=== PATIENT | male | born 1970 | race Caucasian/White ===

== ENCOUNTER 2018-11-04 16:46 | Inpatient (IN) ==
[2018-11-04] MEDS: OFIRMEV 1000 MG/ISOTONIC SOLN 1,000 MG/100 ML BOTTLE IV SCH (16:43)
[~2018-11-04 16:46] MED LIST: NS 1,000 ML IV ONE; NS 1,000 ML ONE
[2018-11-04 17:14] LABS: BASO# 0.01 X1000 (0.0-0.2); BASO% 0.1 % (0.0-0.8); EOS# 0.03 X1000 (0.0-0.7); EOS% 0.4 % (0.0-10.0); HEMATOCRIT 44.9 % (42.0-52.0); HEMOGLOBIN 15.2 g/dL (14.0-18.0); IMM GRAN# 0.03 X1000 (0.0-0.04); IMM GRAN% 0.4 % (0.0-0.5); LYMPH# 0.52 X1000 (1.2-3.4); LYMPH% 6.2 % (20.5-51.1); MCH 30.3 PG (27-31); MCHC 33.9 g/dL (33-37); MCV 89.4 FL (81-99); MONO# 0.46 X1000 (0.11-0.59); MONO% 5.5 % (1.7-9.3); NEUT# 7.39 X1000 (1.4-6.5); NEUT% 87.4 % (42.2-75.2); PLT 185 X1000 (130-400); RBC 5.02 XMIL (4.7-6.1); RDW 13.4 % (11.5-14.5); WBC 8.44 X1000 (4.8-10.8)
[2018-11-04 17:18] LABS: INFLUENZA A NEGATIVE (NEGATIVE); INFLUENZA B NEGATIVE (NEGATIVE)
[2018-11-04 17:19] LABS: ESTIMATED GFR > 60
[2018-11-04 17:31] LABS: AGAP 19; ALBUMIN 4.7 g/dL (3.5-5.0); ALKALINE PHOSPHATASE 132 U/L (32-122); BUN 12 mg/dL (8-22); CALCIUM 9.5 mg/dL (8.8-10.2); CHLORIDE 87 mmol/L (98-107); COSMO 266; GLUCOSE 199 mg/dL (70-104); GOT 42 U/L (10-34); GPT 48 U/L (10-44); POTASSIUM 4.2 mmol/L (3.5-5.1); SODIUM 130 mmol/L (136-145); TCO2 24 mmol/L (25-35); TOTAL PROTEIN 7.7 g/dL (6.3-8.3)
[2018-11-04 17:51] LABS: BLOOD TYPE ARTERIAL; SAMPLE BLOOD
[2018-11-04 17:52] LABS: BE 2.2 mmoll (-3.0-3.0); HCO3-(ACT) 26.5 mmoll (20.0-26.0); METHB 1.5 % (0.0-1.5); O2(CT) 19.5 mL/dL (15.0-23.0); O2HB 92.5 % (95.0-99.0); PCO2(98.6) 35 mmHg (35-45); PO2(98.6) 72 mmHg (60-100); SAO2 96.9 % (95.0-100.0); pH(98.6) 7.47 (7.35-7.45)
[2018-11-04] MEDS: LEVAQUIN 500 MG/D5W 500 MG/100 ML IVPB IV SCH (17:53)
[2018-11-04 17:55] LABS: ALLEN TEST YES; MODALITY CANNULA
[2018-11-04] MEDS ORDERED: NS IV ONE ×3 (18:08)
--- NOTE | 2018-11-04 18:23 | Diag Imaging Result Doc PS360 ---
EXAM: CT HEAD W/O CONTRAST INDICATION: altered mental status TECHNIQUE: This exam was performed using automated exposure control, adjustment of mA or kV according to patient size, and/or use of iterative reconstruction technique. COMPARISON: None. FINDINGS: There is an incidental prominent Virchow Mason space at the inferior aspect of the right basal ganglion. There is no definite acute infarct given the limited sensitivity of CT versus MRI. There is no discrete intracranial mass, mass effect, or intracranial hemorrhage. The surrounding soft tissues and bony structures are essentially unremarkable. IMPRESSION: No evidence of acute intracranial pathology. Electronically signed by Ld Lpoez 11/04/2018 6:20 PM
--- NOTE | 2018-11-04 19:32 | PROVIDER DOCUMENTATION ---
This chart was entered by Ana Vazquez Scribe, acting as scribe for Nando Albert MD. 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 denies: nausea, vomiting Similar Symptoms Previously?: No Recently seen or treated by another doctor?: No - Glascow Coma Score Best Eye Response (Mike): (3) open to voice Best Verbal Response ([place]): (2) incomprehsible sounds Best Motor Response (Mike): (5) localizes to pain Mike Total: 10 <Nando Albert - Last Filed: 11/04/18 19:30> <Darrin Lindo - Last Filed: 11/04/18 22:31> - General Chief Complaint: SEPSIS ALERT - P Stated Complaint: FEVER Time Seen by Provider: 11/04/18 16:30 Allergies/Adverse Reactions: Patient Allergies Allergy/AdvReac Type Severity Reaction Status Date / Time ceftriaxone sodium * Allergy ANAPHYLAXIS Verified 12/15/14 17:53 [From Rocephin] dextromethorphan HBr * AdvReac HIVES Verified 12/15/14 17:53 [From Delsym] Sulfa (Sulfonamide AdvReac RASH Verified 12/15/14 17:53 Antibiotics) Home Medications: Home Medication List Medication Instructions Recorded Confirmed Last Taken Type Amitriptyline HCl 150 mg PO DAILY 12/12/14 12/15/14 Unknown History Benzonatate [Tessalon] 200 mg PO TID PRN PRN #21 capsule 12/12/14 12/15/14 Unknown Rx Carbamazepine 200 mg PO BID 12/12/14 12/15/14 Unknown History Ergocalciferol (Vitamin D2) 50,000 unit PO 12/12/14 12/15/14 Unknown History [Vitamin D2] Fluticasone Propionate 220 INH 200 mcg DAILY 12/12/14 12/15/14 Unknown History [Flovent 220 Microgm Hfa] Gabapentin 800 mg PO TID 12/12/14 12/15/14 Unknown History Levofloxacin [Levaquin] 750 mg PO DAILY #7 tablet 12/12/14 12/15/14 Unknown Rx Montelukast [Singulair] 10 mg PO DAILY 12/12/14 12/15/14 Unknown History Oxcarbazepine 300 mg PO BID 12/12/14 12/15/14 Unknown History Oxycodone HCl/Acetaminophen 1 each PO TID 12/12/14 12/15/14 Unknown History [Oxycodone-Acetaminophen 10-325] Sulindac 200 mg PO BID 12/12/14 12/15/14 Unknown History Tizanidine [Zanaflex] 4 mg PO BID 12/12/14 12/15/14 Unknown History Triamterene/Hydrochlorothiazid 1 tab DAILY 12/12/14 12/15/14 Unknown History [Triamterene-Hctz 37.5-25 mg Tb] Cephalexin [Keflex] 500 mg PO BID #14 capsule 12/15/14 Unknown Rx - History of Present Illness-Fever Nature of Presenting Problem: 47 yowm presents to the ed via pov with his mother. pt was going to see his pcp and they could not get him out of the car so he was sent to ed. mother sts pt yesterday told her he did not feel well and had a fever, productive cough with dark sputum and congestion. mother went over today and pt was weak and not speaking much (Nando Albert) Review of Systems - Adult - REVIEW OF SYSTEMS - ADULT ROS:: ROS per family (mother) Constitutional: reports: see HPI, chills, fever, fatique Eyes: reports: no symptoms reported Ears, Nose, Mouth & Throat: reports: no symptoms reported Cardiovascular: denies: chest pain, syncope Respiratory: reports: cough, excessive sputum production (dark in color), shortness of breath Gastrointestinal: denies: abdominal pain, diarrhea, nausea, vomiting Genitourinary: reports: no symptoms reported Musculoskeletal: reports: see HPI, muscle aches, muscle weakness Integumentary: reports: no symptoms reported Neurological: reports: see HPI. denies: dizziness/vertigo, headache/migraines, syncope Psychiatric: reports: see HPI, other (confusion) Endocrine: reports: no symptoms reported Hematologic/Lymphatic: reports: no symptoms reported Allergic/Immunologic: reports: no symptoms reported All Other Systems: Reviewed and Negative <Nando Albert - Last Filed: 11/04/18 19:30> Past History - Adult - PAST MEDICAL HISTORY-ADULT Review of Records: reports: Nursing Assessment Review, Medications Reviewed Major Childhood Illnesses: reports: denies history Cardiovascular: reports: CHF Respiratory: reports: denies history Gastrointestinal: reports: denies history Genitourinary: reports: denies history Musculoskeletal: reports: arthritis, other (polyneuropathy) Hand Dominance: Right Handed Neurological: reports: Seizures/Epilepsy Endocrine/Immune: reports: denies history Other Conditions: reports: deaf/hard of hearing - PRIOR SURGERIES/PROCEDURES Surgical/Procedure History: reports: cholecystectomy, other (Cardiac Sx) - IMMUNIZATION STATUS Childhood Immunizations: NUTD Flu Vaccine: NUTD - FAMILY HISTORY Family History: reviewed, not pertinent - SOCIAL HISTORY Smoking: cigarettes, less than 1 pack/day Provider spent 3-5 mins advising pt. on dangers of tobacco.: Discussed manners to quit use, and f/u contacts for add'l counseling. Substance Use: none/never Alcohol Use Frequency: never Living Situation: alone <Nando Albert - Last Filed: 11/04/18 19:30> Physical Exam-General - PHYSICAL EXAM-ADULT Exam Limited by: pt is nonverbal on exam Initial Vital Signs Reviewed: Yes (fever-105.1 HR-134 RR-28 BP-48/28) - CONSTITUTIONAL General Appearance: alert, moderate distress, obese, slow to respond - EYES Eyes: PERRL/EOMI - HEAD, EARS, NOSE, MOUTH & THROAT HENMT: negative: moist mucous membranes - NECK Neck: full range of motion, normal inspection - RESPIRATORY Respiratory: chest non-tender, rhonchi (on left only), increased rate (28) - CARDIOVASCULAR Cardiovascular: normal peripheral pulses, tachycardia (134) - GASTROINTESTINAL (ABDOMEN) Abdominal Exam: normal bowel sounds, soft - GENITOURINARY Male Genitalia: deferred Rectal Exam: deferred Hemoccult Exam: deferred - LYMPHATIC Lymphatic: no adenopathy - MUSCULOSKELETAL Extremity: negative: normal gait (weakness) - SKIN Integumentary: other (flushed in appearance) - PSYCHIATRIC Psych/Mental Status: anxious, disheveled <Nando Albert - Last Filed: 11/04/18 19:30> Progress - PLAN OF CARE/RESULTS Result Diagrams: 11/04/18 16:35 11/04/18 16:35 - REASSESSMENT Reassessment #1 Time Reassessed: 16:42 (dr at bedside speaking with mother of pt) Status: unchanged - CHANGE OF SHIFT REPORT (ED Provider) 1 Report Given and Care Transferred to:: Dr Lindo Time of Transfer: 19:00 Items Pending: Labs, XRAY Results <Nando Albert - Last Filed: 11/04/18 19:30> - PLAN OF CARE/RESULTS Result Diagrams: 11/04/18 16:35 11/04/18 16:35 - CONSULTS/PCP/HOSPITALIST Notification #1 *Consult/PCP/Hospitalist*: Dr. Spicer, hospitalist Time Discussed: 21:45 Reason/Comments: already advised [facility] to admit to ICU Consult Disposition: Admit <Darrin Lindo - Last Filed: 11/04/18 22:31> - PLAN OF CARE/RESULTS Progress/Plan/Lab Results: Vital Signs - 8 hr 11/04/18 16:25 11/04/18 16:38 11/04/18 17:41 Temperature 105.1 F H 102.9 F H Pulse Rate 134 H 128 H 131 H Respiratory Rate 28 H 33 H 22 Blood Pressure 48/28 138/102 102/63 O2 Sat by Pulse Oximetry 89 L 93 L 95 11/04/18 18:03 11/04/18 20:40 11/04/18 22:00 Temperature 101 F H 98.6 F 98.2 F Pulse Rate 129 H 105 H 95 H Respiratory Rate 27 H 21 17 Blood Pressure 102/68 125/71 O2 Sat by Pulse Oximetry 95 94 L 92 L Laboratory Results - last 24 hr 11/04/18 11/04/18 11/04/18 16:35 16:35 16:35 WBC 8.44 RBC 5.02 Hgb 15.2 Hct 44.9 MCV 89.4 MCH 30.3 MCHC 33.9 RDW Std Deviation 13.4 Plt Count 185 MPV 10.0 Immature Gran % (Auto) 0.4 Neut % (Auto) 87.4 H Lymph % (Auto) 6.2 L [place] % (Auto) 5.5 Eos % (Auto) 0.4 Baso % (Auto) 0.1 Immature Gran # (Auto) 0.03 Neut # (Auto) 7.39 H Lymph # (Auto) 0.52 L [place] # (Auto) 0.46 Eos # (Auto) 0.03 Baso # (Auto) 0.01 PT INR PTT (Actin FS) Specimen Type Sample Site pH pCO2 pO2 HCO3 Base Excess Oxyhemoglobin ABG O2 Sat (Calculated) ABG O2 Saturation ABG Carboxyhemoglobin ABG Methemoglobin Branden Test A-a O2 Difference Total Hemoglobin Lactate Blood Gas Modality FiO2 % Sodium 130 L Potassium 4.2 Chloride 87 L Carbon Dioxide 24 L Anion Gap 19 BUN 12 Creatinine 1.0 Estimated GFR/1.73 m2 > 60 BUN/Creatinine Ratio 12 Glucose 199 H Calculated Osmolality 266 Calcium 9.5 Total Bilirubin 0.70 AST 42 H ALT 48 H Alkaline Phosphatase 132 H Creatine Kinase Creatine Kinase Index CK-MB (CK-2) Troponin T < 0.010 Total Protein 7.7 Albumin 4.7 Globulin 3.0 Albumin/Globulin Ratio 2.0 Plasma Lactate Urine Source Urine Color Urine Clarity Urine pH Ur Specific [place] Urine Protein Urine Ketones Urine Blood Urine Nitrite Urine Bilirubin Urine Urobilinogen Urine Microscopic RBC Urine WBC Urine Microscopic WBC Ur Epithelial Cells Urine Crystals Urine Bacteria Urine Casts Urine Yeast Urine Glucose Influenza A (Rapid) Influenza B (Rapid) 11/04/18 11/04/18 11/04/18 16:35 16:35 16:35 WBC RBC Hgb Hct MCV MCH MCHC RDW Std Deviation Plt Count MPV Immature Gran % (Auto) Neut % (Auto) Lymph % (Auto) [place] % (Auto) Eos % (Auto) Baso % (Auto) Immature Gran # (Auto) Neut # (Auto) Lymph # (Auto) [place] # (Auto) Eos # (Auto) Baso # (Auto) PT INR PTT (Actin FS) Specimen Type Sample Site pH pCO2 pO2 HCO3 Base Excess Oxyhemoglobin ABG O2 Sat (Calculated) ABG O2 Saturation ABG Carboxyhemoglobin ABG Methemoglobin Branden Test A-a O2 Difference Total Hemoglobin Lactate Blood Gas Modality FiO2 % Sodium Potassium Chloride Carbon Dioxide Anion Gap BUN Creatinine Estimated GFR/1.73 m2 BUN/Creatinine Ratio Glucose Calculated Osmolality Calcium Total Bilirubin AST ALT Alkaline Phosphatase Creatine Kinase 643 H Creatine Kinase Index 2.2 CK-MB (CK-2) 14.41 H Troponin T Total Protein Albumin Globulin Albumin/Globulin Ratio Plasma Lactate 4.8 H Urine Source Urine Color Urine Clarity Urine pH Ur Specific [place] Urine Protein Urine Ketones Urine Blood Urine Nitrite Urine Bilirubin Urine Urobilinogen Urine Microscopic RBC Urine WBC Urine Microscopic WBC Ur Epithelial Cells Urine Crystals Urine Bacteria Urine Casts Urine Yeast Urine Glucose Influenza A (Rapid) NEGATIVE Influenza B (Rapid) NEGATIVE 11/04/18 11/04/18 11/04/18 16:35 17:40 20:20 WBC RBC Hgb Hct MCV MCH MCHC RDW Std Deviation Plt Count MPV Immature Gran % (Auto) Neut % (Auto) Lymph % (Auto) [place] % (Auto) Eos % (Auto) Baso % (Auto) Immature Gran # (Auto) Neut # (Auto) Lymph # (Auto) [place] # (Auto) Eos # (Auto) Baso # (Auto) PT 13.3 INR 0.96 PTT (Actin FS) 36.3 Specimen Type ARTERIAL Sample Site L RADIAL pH 7.47 H pCO2 35 pO2 72 HCO3 26.5 H Base Excess 2.2 Oxyhemoglobin 92.5 L ABG O2 Sat (Calculated) 19.5 ABG O2 Saturation 96.9 ABG Carboxyhemoglobin 3.00 H ABG Methemoglobin 1.5 Branden Test YES A-a O2 Difference 141.0 Total Hemoglobin 15.0 Lactate 3.90 H Blood Gas Modality CANNULA FiO2 % 36.0 Sodium Potassium Chloride Carbon Dioxide Anion Gap BUN Creatinine Estimated GFR/1.73 m2 BUN/Creatinine Ratio Glucose Calculated Osmolality Calcium Total Bilirubin AST ALT Alkaline Phosphatase Creatine Kinase Creatine Kinase Index CK-MB (CK-2) Troponin T Total Protein Albumin Globulin Albumin/Globulin Ratio Plasma Lactate Urine Source CLEAN CATCH Urine Color YELLOW Urine Clarity CLEAR Urine pH 5.0 Ur Specific [place] 1.015 Urine Protein 1+(30 mg/dL) A Urine Ketones 1+(Small) A Urine Blood 1+ A Urine Nitrite NEGATIVE Urine Bilirubin NEGATIVE Urine Urobilinogen NORMAL Urine Microscopic RBC <10 Urine WBC TRACE A Urine Microscopic WBC <10 Ur Epithelial Cells <10 Urine Crystals NONE SEEN Urine Bacteria 1+ Urine Casts NONE SEEN Urine Yeast NONE SEEN Urine Glucose 2+(250 mg/dL) A Influenza A (Rapid) Influenza B (Rapid) 11/04/18 11/04/18 20:25 20:25 WBC RBC Hgb Hct MCV MCH MCHC RDW Std Deviation Plt Count MPV Immature Gran % (Auto) Neut % (Auto) Lymph % (Auto) [place] % (Auto) Eos % (Auto) Baso % (Auto) Immature Gran # (Auto) Neut # (Auto) Lymph # (Auto) [place] # (Auto) Eos # (Auto) Baso # (Auto) PT INR PTT (Actin FS) Specimen Type Sample Site pH pCO2 pO2 HCO3 Base Excess Oxyhemoglobin ABG O2 Sat (Calculated) ABG O2 Saturation ABG Carboxyhemoglobin ABG Methemoglobin Branden Test A-a O2 Difference Total Hemoglobin Lactate Blood Gas Modality FiO2 % Sodium Potassium Chloride Carbon Dioxide Anion Gap BUN Creatinine Estimated GFR/1.73 m2 BUN/Creatinine Ratio Glucose Calculated Osmolality Calcium Total Bilirubin AST ALT Alkaline Phosphatase Creatine Kinase Creatine Kinase Index CK-MB (CK-2) Troponin T < 0.010 Total Protein Albumin Globulin Albumin/Globulin Ratio Plasma Lactate 3.0 H Urine Source Urine Color Urine Clarity Urine pH Ur Specific [place] Urine Protein Urine Ketones Urine Blood Urine Nitrite Urine Bilirubin Urine Urobilinogen Urine Microscopic RBC Urine WBC Urine Microscopic WBC Ur Epithelial Cells Urine Crystals Urine Bacteria Urine Casts Urine Yeast Urine Glucose Influenza A (Rapid) Influenza B (Rapid) Orders Category Date Time Status Cardiac Monitoring DIRECTED Care 11/04/18 19:08 Active IV Insertion ORDERED Care 11/04/18 19:08 Completed IV Insertion ORDERED Care 11/04/18 22:27 Ordered Notify MD of + Sepsis Screen NOW Care 11/04/18 22:27 Ordered Notify Physician As Ordered Care 11/04/18 19:08 Active Nursing- Obtain EKG ONCE Care 11/04/18 16:26 Active CHEST-1 VIEW [RAD] Stat Exams 11/04/18 16:[address] HEAD W/O CONTRAST [CT] Stat Exams 11/04/18 16:38 Completed ABG [RESP] Routine Lab 11/04/18 17:40 Completed BLOOD CULTURE [BLDCUL] Stat Lab 11/04/18 16:35 Results CBC WITH ELECTRONIC DIFF [HEME] Stat Lab 11/04/18 16:35 Completed CK PROFILE [SP CHEM] Stat Lab 11/04/18 16:35 Completed CK PROFILE [SP CHEM] Stat Lab 11/04/18 22:27 Uncollected COMPREHENSIVE METABOLIC PANEL [CHEM] Stat Lab 11/04/18 16:[address] Stat Lab 11/04/18 16:35 Completed LACTATE, PLASMA [CHEM] Q3H Lab 11/04/18 20:25 Completed LACTATE, PLASMA [CHEM] Q3H Lab 11/04/18 22:30 Uncollected LACTATE, PLASMA [CHEM] Q3H Lab 11/05/18 01:30 Uncollected LACTATE, PLASMA [CHEM] Q3H Lab 11/05/18 04:30 Uncollected LACTATE, PLASMA [CHEM] Stat Lab 11/04/18 16:35 Completed LACTATE, PLASMA [CHEM] Stat Lab 11/04/18 23:30 Ordered PROTIME WITH INR [COAG] Stat Lab 11/04/18 16:35 Completed PROTIME WITH INR [COAG] Stat Lab 11/04/18 22:27 Uncollected PTT [COAG] Stat Lab 11/04/18 16:35 Completed PTT [COAG] Stat Lab 11/04/18 22:27 Uncollected TROPONIN T Stat Lab 11/04/18 16:35 Completed TROPONIN T Stat Lab 11/04/18 20:25 Completed TROPONIN T Stat Lab 11/04/18 22:[address] W/POSS RFLX CULT [URINALYSIS] Stat Lab 11/04/18 20:20 Completed URINE CULTURE [RM] Routine Lab 11/04/18 20:55 Received 0.9% Sodium Chloride Inj [Ns] 1,000 ml Med 11/04/18 16:19 Discontinued .ROUTE As directed 0.9% Sodium Chloride Inj [Ns] 1,000 ml Med 11/04/18 16:27 Discontinued .ROUTE As directed 0.9% Sodium Chloride Inj [Ns] 1,000 ml Med 11/04/18 18:08 Discontinued 0.9% Sodium Chloride Inj [Ns] 1,000 ml 0.9% Sodium Chloride Inj [Ns] 1,000 ml IV 999 mls/hr 0.9% Sodium Chloride Inj [Ns] 1,000 ml Med 11/04/18 16:30 Discontinued IV 999 mls/hr Acetaminophen [Ofirmev 1000 mg/Isotonic Soln] Med 11/04/18 17:00 Active 1,000 mg in 100 ml IV Q6H Levofloxacin 500 mg/D5w [Levaquin 500 mg/D5w] Med 11/04/18 17:45 Active 500 mg in 100 ml IV Q24H Vancomycin 1 gm/Ns Med 11/04/18 21:35 Active 1 gm in 250 ml IV NOW Oxygen Device Stat Oth 11/04/18 19:08 Active EKG [EKG] Stat Ther 11/04/18 16:26 Draft Departure - Critical Care Note This patient required my direct & personal management of CC.: Yes Total Time (mins): 48 Critical Care Statement: This patient required my direct personal management to treat or rule out processes, the absence of which, could potentiallly result in sudden, clinically significant life or limb threatening deterioration. <Nando Albert - Last Filed: 11/04/18 19:30> - Departure Date of Disposition Decision: 11/04/18 Time of Disposition Decision: 22:30 Certified Medical Emergency: Emergent <Darrin Lindo - Last Filed: 11/04/18 22:31> - Departure DIAGNOSIS: Pneumonia Qualifiers: Pneumonia type: due to unspecified organism Laterality: bilateral Lung location: lower lobe of lung Qualified Code(s): J18.1 - Lobar pneumonia, unspecified organism Sepsis Qualifiers: Sepsis type: sepsis due to unspecified organism Qualified Code(s): A41.9 - Sepsis, unspecified organism Disposition: ADMITTED INPATIENT 09 Condition: Critical Referrals and Follow-Ups: Candelario Kent MD [Primary Care Provider] - Attestation - Physician/ GARRY Attestation Patient care was provided by Advanced Practice Provider:: No The physician spent face to face time with patient:: Yes Advanced Practice Provider documentation review:: Supervising physician onsite and consulted in the evaluation and care of this patient. The physician did have a face to face encounter with the patient. <Nando Albert - Last Filed: 11/04/18 19:30> This chart was documented by the indicated scribe, (Ana Vazquez Scribe) and accurately reflects the services I performed and decisions made by me, Nando Albert MD, as attested by the provider's signature.
[2018-11-04 20:12] LABS: INR 0.96; PROTIME 13.3 Seconds (11.0-16.0)
[2018-11-04 20:13] LABS: PTT 36.3 Seconds (22.3-41.8)
--- NOTE | 2018-11-04 20:13 | EKG Report ---
Test Performed on : 11/04/2018 6:26:48 PM Test Reason : sepsis Blood Pressure : / mmHG Vent. Rate : 123 BPM Atrial Rate : 123 BPM P-R Int : 170 ms QRS Dur : 098 ms QT Int : 326 ms P-R-T Axes : 033 020 033 degrees QTc Int : 466 ms Sinus tachycardia. Otherwise normal ECG No previous ECGs available Unconfirmed Result
--- NOTE | 2018-11-04 20:31 | Diag Imaging Result Doc PS360 ---
EXAM: CHEST-1 VIEW INDICATION: fever TECHNIQUE: One view COMPARISON: 12/12/2014 FINDINGS: Inspiration is suboptimal. There is suggestion of mild ill-defined infiltrate at the mid and lower lung zones bilaterally. It is mainly interstitial. There is no discrete pleural fluid collection or pneumothorax. The cardiomediastinal silhouette and central vasculature are grossly unremarkable. IMPRESSION: Suggestion of mild ill-defined infiltrates at the mid and lower lung zones bilaterally. Follow-up PA and lateral radiograph is suggested. Electronically signed by Ld Lopez 11/04/2018 8:29 PM
[2018-11-04 20:40] LABS: CK INDEX 2.2 (0.0-2.5); CK-MB 14.41 ng/mL (0.0-5.0)
[2018-11-04 20:50] LABS: BILIRUBIN URINE NEGATIVE (NEGATIVE); BLOOD URINE 1+ (NEGATIVE); CLARITY CLEAR (CLEAR); COLOR YELLOW; KETONE URINE 1+(Small) mg/dL (NEGATIVE); LEUKOCYTES URINE TRACE (NEGATIVE); NITRITE URINE NEGATIVE (NEGATIVE); PROTEIN URINE 1+(30 mg/dL) mg/dL (NEGATIVE); SP GRAVITY URINE 1.015; UROBILINOGEN URINE NORMAL
[2018-11-04 20:55] LABS: URINE BACTERIA 1+ /HFP; URINE CAST NONE SEEN /LPF; URINE CRYSTAL NONE SEEN /HPF; URINE EPITHELIAL CELLS <10 /HPF (<10); URINE RBC <10 /HPF (<10); URINE SOURCE CLEAN CATCH; URINE WBC <10 /HPF (<10); URINE YEAST NONE SEEN /HPF
[2018-11-04] MEDS ORDERED: VANCOMYCIN 1 GM/NS 1 GM/250 ML IVPB IV ONE (21:35)
[2018-11-04] MEDS ORDERED: MORPHINE IV PRN (22:32)
[2018-11-04] MEDS ORDERED: NS 1,000 ML IV ONE ×2 (22:32→22:39)
[2018-11-04] MEDS ORDERED: ZOFRAN IV PRN (22:32)
[2018-11-05 01:11] LABS: PTT 36.2 Seconds (22.3-41.8)
[2018-11-05 01:21] LABS: INR 1.08; PROTIME 14.5 Seconds (11.0-16.0)
[2018-11-05] MEDS: OFIRMEV 1000 MG/ISOTONIC SOLN 1,000 MG/100 ML BOTTLE IV SCH ×4 (01:49→23:24)
[2018-11-05] MEDS ORDERED: NEURONTIN PO ONE (02:50)
[2018-11-05] MEDS ORDERED: CLINORIL PO ONE (02:51)
[2018-11-05] MEDS ORDERED: TEGRETOL PO ONE (02:52)
[2018-11-05] MEDS ORDERED: TRILEPTAL PO ONE (02:52)
[2018-11-05] MEDS ORDERED: ZANAFLEX PO ONE (02:53)
[2018-11-05 03:07] LABS: CK INDEX 1.5 (0.0-2.5); CK-MB 7.71 ng/mL (0.0-5.0)
[2018-11-05] MEDS ORDERED: PHENERGAN PO PRN (03:15)
[2018-11-05] MEDS ORDERED: ELAVIL PO ONE ×2 (03:25→03:41)
[2018-11-05] MEDS ORDERED: VANCOMYCIN IV PER PHARMACY MISC SCH (08:30)
[2018-11-05] MEDS: NS 1,000 ML IV SCH ×2 (08:55→15:17)
[2018-11-05] MEDS: TEGRETOL PO SCH ×2 (09:50→23:23)
[2018-11-05] MEDS: SINGULAIR PO SCH (09:50)
[2018-11-05] MEDS: ZANAFLEX PO SCH ×2 (09:50→23:23)
[2018-11-05] MEDS: NEURONTIN PO SCH ×3 (09:50→16:58)
[2018-11-05] MEDS: NON-FORMULARY MED PO SCH ×2 (09:51→23:24)
[2018-11-05] MEDS: TRILEPTAL PO SCH ×2 (09:53→23:23)
[2018-11-05] MEDS: ZYRTEC PO SCH (09:53)
[2018-11-05 09:54] LABS: AGAP 8; BUN 10 mg/dL (8-22); CHLORIDE 99 mmol/L (98-107); COSMO 265; CREATININE 0.6 mg/dL (0.7-1.2); GLUCOSE 162 mg/dL (70-104); POTASSIUM 3.8 mmol/L (3.5-5.1); SODIUM 131 mmol/L (136-145); TCO2 25 mmol/L (25-35)
[2018-11-05 09:55] LABS: CALCIUM 7.6 mg/dL (8.8-10.2); ESTIMATED GFR > 60
[2018-11-05] MEDS: AZACTAM 2 GM in NS 100 ML IV SCH ×2 (09:57→16:57)
[2018-11-05] MEDS ORDERED: VANCOMYCIN 2,500 MG in NS 500 ML IV ONE (10:00)
[2018-11-05 10:27] LABS: BASO# 0.01 X1000 (0.0-0.2); BASO% 0.1 % (0.0-0.8); EOS% 2.3 % (0.0-10.0); HEMATOCRIT 32.9 % (42.0-52.0); HEMOGLOBIN 10.8 g/dL (14.0-18.0); IMM GRAN# 0.03 X1000 (0.0-0.04); IMM GRAN% 0.3 % (0.0-0.5); LYMPH# 1.18 X1000 (1.2-3.4); LYMPH% 13.5 % (20.5-51.1); MCH 30.3 PG (27-31); MCHC 32.8 g/dL (33-37); MCV 92.4 FL (81-99); MONO# 0.78 X1000 (0.11-0.59); MONO% 8.9 % (1.7-9.3); MPV 9.9 FL (7.4-10.4); NEUT# 6.54 X1000 (1.4-6.5); NEUT% 74.9 % (42.2-75.2); PLT 158 X1000 (130-400); RBC 3.56 XMIL (4.7-6.1); RDW 13.4 % (11.5-14.5); WBC 8.74 X1000 (4.8-10.8)
[2018-11-05] MEDS ORDERED: TEGRETOL PO SCH (10:45)
[2018-11-05] MEDS ORDERED: TRILEPTAL PO SCH (10:45)
[2018-11-05] MEDS ORDERED: SINGULAIR PO SCH (10:45)
[2018-11-05] MEDS ORDERED: MS CONTIN PO SCH (10:45)
[2018-11-05] MEDS ORDERED: HYDROCHLOROTHIAZIDE PO SCH (10:45)
[2018-11-05] MEDS ORDERED: ZANAFLEX PO SCH (11:00)
[2018-11-05] MEDS ORDERED: NON-FORMULARY MED PO SCH (11:30)
[2018-11-05] MEDS ORDERED: ZYRTEC PO SCH (11:30)
--- NOTE | 2018-11-05 11:35 | HISTORY AND PHYSICAL ---
PRIMARY CARE PHYSICIAN: Dr. Kent. CHIEF COMPLAINT: Subjective fever, chills, malaise, shortness of breath, weakness, and a productive cough for the past several days that progressively worsened. HISTORY OF PRESENTING ILLNESS: This is a 47-year-old male who presents to [facility] ER by private automobile with his mom, had gone to the primary care physician's office for evaluation and mom was unable to get him out of the car and so they sent him straight to the emergency room. When they arrived, he was noted to have a temperature of 105.1 degrees, pulse of 134, blood pressure of 48/28 and was saturating 89% on room air. His white blood cell count was 8.44. His sodium was 130 with a chloride of 87. His creatine kinase was 643 with a CK-MB of 14.41 with a negative troponin. Plasma lactate of 4.8. His chest x-ray showed suggestion of mild ill-defined infiltrates at the mid and lower lung zones bilaterally. So, he was admitted to the intensive care unit with sepsis, bilateral pneumonia, for further evaluation and treatment. PAST MEDICAL HISTORY: CHF, arthritis, seizures, diabetes. PAST SURGICAL HISTORY: Cholecystectomy. FAMILY HISTORY: Reviewed and noncontributory. SOCIAL HISTORY: He currently lives alone. Denies any tobacco use but is a former smoker. Denies any alcohol or illicit drug use. ALLERGIES: Ceftriaxone, Delsym, and sulfa drugs. HOME MEDICATIONS: We will hold his Glucophage 500 mg p.o. 4 times daily and Phenergan 25 mg p.o. p.r.n. We will continue his amitriptyline 150 mg p.o. at bedtime, carbamazepine 200 mg p.o. b.i.d., clonidine 0.2 mg p.o. b.i.d., vitamin D2, 53410 units as directed, Flovent 1 daily, gabapentin 800 mg p.o. t.i.d., hydrochlorothiazide 25 mg p.o. daily, levocetirizine 5 mg p.o. daily, Singulair 10 mg p.o. daily, morphine ER 30 mg p.o. daily, morphine IR 30 mg p.o. b.i.d., oxcarbazepine 300 mg p.o. b.i.d., Sulindac 200 mg p.o. b.i.d., and Zanaflex 4 mg p.o. b.i.d. LABORATORY DATA: Showed a white blood cell count of 8.44, hemoglobin 10.5, hematocrit 44.9, platelets 185,000. PT and INR of 13.3 and 0.93. ABG on 3 L via nasal cannula with a pH of 7.47, pCO2 35, PO2 72, bicarb 26.5. Sodium 130, potassium 4.2, chloride 87, CO2 24, BUN of 12, creatinine 1, glucose 199. AST 42, ALT 48, alkaline phosphatase 132. Creatine kinase of 643 with a CK-MB of 14.41, troponin less than 0.010. Plasma lactate was 4.8, four hours later was 3.0, this a.m. was down to 1.1. Urinalysis was negative except for 1+ bacteria. Influenza A and B were both negative. DIAGNOSTIC DATA: Chest x-ray showed a suggestion of mild ill-defined infiltrates at the mid and lower lung zones bilaterally. CT of the head showed no evidence of acute intracranial pathology. EKG showed sinus tachycardia at 123. REVIEW OF SYSTEMS: He had a subjective fever, chills, malaise, shortness of breath, weakness, and a productive cough. Denied any abdominal pain, constipation, diarrhea, burning or hurting with urination. PHYSICAL EXAMINATION: VITAL SIGNS: On arrival, he had a temperature of 105.1 degrees, pulse 134, respirations 28, blood pressure was 48/28, saturating 89% on room air. Currently his temperature is 97.5 degrees, pulse 68, respirations 20, blood pressure is 86/55, saturating 98% on 2 L. GENERAL: This is a 47-year-old male who is sitting up in the bed but lethargic and unable to answer my questions at this time. HEENT: Normocephalic, atraumatic. Normal ENT inspection. Oropharynx and nares are clear. EYES: Equal, round, reactive to light and accommodation. Extraocular movements are intact. NECK: Normal inspection. Normal range of motion. LUNGS: With some rhonchi on the left. Was tachypneic he first came in, but that has resolved. Equal lung expansion, chest wall movement noted and O2 via nasal cannula currently in use. HEART: Regular rate and rhythm. No murmurs, rubs, or gallops. ABDOMEN: Soft, nontender, nondistended. Bowel sounds are present x4 quadrants. MUSCULOSKELETAL: Unable to assess his strength at this time due to his lethargy, but is able to move all extremities well normally according to the patient's mom. NEUROLOGICAL: Unable to perform neurological exam at this time. ASSESSMENT: 1. Sepsis. 2. Bilateral pneumonia. 3. Acute respiratory failure. 4. Hypotension. 5. Rhabdomyolysis. 6. Hyponatremia. PLAN: He was admitted to the intensive care unit, placed on telemetry, diabetic diet. We are going to obtain a CT of the thorax with contrast in the morning. Placed him on Azactam 2 g IV q.8, Levaquin 500 mg IV q.24, morphine 2 mg IV q.2 hours p.r.n. Continue his home medications. He is on normal saline at 150 mL an hour, Ofirmev 1000 mg IV q.6 hours routinely, vancomycin per pharmacy protocol. We will recheck a CBC and BMP in the a.m. Blood culture and urine culture are pending. Further orders after seen by attending. Dictated by MARIYA Kay for Oswaldo Aquino MD Addendum: Patient seen and examined by myself. Agree with MARIYA note. It reflects my assessment and plan. Patient is being admitted to hospital for sepsis of unknown source. Will start broad spectrum antibiotics, IV fluids because BP has been low at admission. Will check CBC and bmp daily. Will send him to ICU for better monitoring. cc: MARIYA Kay MD Kenneth E. Mashburn, MD MTDD
[2018-11-05] MEDS: CATAPRES PO SCH ×2 (11:39→23:23)
[2018-11-05] MEDS: FLOVENT 220 MICROGM HFA INH SCH ×2 (11:44→11:56)
[2018-11-05] MEDS: DUONEB (A & A) INH SCH ×4 (11:47→23:57)
[2018-11-05] MEDS ORDERED: NEURONTIN PO SCH (13:00)
[2018-11-05] MEDS: MS CONTIN PO SCH (14:12)
--- NOTE | 2018-11-05 15:52 | Diag Imaging Result Doc PS360 ---
EXAM: CT THORAX W/CONTRAST HISTORY: pneumonia TECHNIQUE: CT chest with intravenous contrast COMPARISON: None. FINDINGS: There are bilateral multinodular infiltrates most pronounced in the lower lobes, right greater than left. Trace pleural fluid. The heart is mildly enlarged. No thoracic aortic aneurysm or dissection. There are calcified mediastinal and hilar lymph nodes with scattered granuloma. There are mildly prominent noncalcified mediastinal and hilar nodes. Limited images through the upper abdomen reveal a prominent liver with marked fatty infiltration. The spleen is also mildly enlarged measuring at least 14.5 cm. The gallbladder has been removed. IMPRESSION: 1.Bilateral pneumonia, right greater than left 2.There is also evidence of a prior granulomatous infection 3.Mild cardiac megaly 4.Hepatosplenomegaly with fatty infiltration of the liver 5.Cholecystectomy This exam was performed using automated exposure control, adjustment of mA or kV according to patient size, and/or use of iterative reconstruction technique. Electronically signed by Lucio Salguero 11/05/2018 3:50 PM
[2018-11-05] MEDS: LEVAQUIN 500 MG/D5W 500 MG/100 ML IVPB IV SCH (16:57)
[2018-11-05] MEDS ORDERED: ELAVIL PO SCH (21:00)
[2018-11-05] MEDS: MORPHINE IR PO SCH (23:21)
[2018-11-05] MEDS: ELAVIL PO SCH (23:23)
[2018-11-06] MEDS: AZACTAM 2 GM in NS 100 ML IV SCH ×3 (01:50→19:31)
[2018-11-06] MEDS: NS 1,000 ML IV SCH ×4 (01:50→18:05)
[2018-11-06] MEDS: DUONEB (A & A) INH SCH ×6 (04:22→22:49)
[2018-11-06] MEDS: VANCOMYCIN 2,000 MG in NS 500 ML IV SCH ×2 (04:42→18:00)
[2018-11-06] MEDS: OFIRMEV 1000 MG/ISOTONIC SOLN 1,000 MG/100 ML BOTTLE IV SCH (04:42)
[2018-11-06 06:13] LABS: BASO# 0.02 X1000 (0.0-0.2); BASO% 0.4 % (0.0-0.8); EOS# 0.14 X1000 (0.0-0.7); EOS% 2.9 % (0.0-10.0); HEMATOCRIT 33.2 % (42.0-52.0); HEMOGLOBIN 10.7 g/dL (14.0-18.0); IMM GRAN# 0.03 X1000 (0.0-0.04); IMM GRAN% 0.6 % (0.0-0.5); LYMPH# 0.99 X1000 (1.2-3.4); LYMPH% 20.6 % (20.5-51.1); MCH 29.7 PG (27-31); MCHC 32.2 g/dL (33-37); MCV 92.2 FL (81-99); MONO# 0.38 X1000 (0.11-0.59); MONO% 7.9 % (1.7-9.3); MPV 9.9 FL (7.4-10.4); NEUT# 3.25 X1000 (1.4-6.5); NEUT% 67.6 % (42.2-75.2); PLT 150 X1000 (130-400); RDW 13.1 % (11.5-14.5); WBC 4.81 X1000 (4.8-10.8)
[2018-11-06 06:29] LABS: AGAP 11; BUN 7 mg/dL (8-22); CALCIUM 7.7 mg/dL (8.8-10.2); CHLORIDE 101 mmol/L (98-107); COSMO 269; CREATININE 0.5 mg/dL (0.7-1.2); ESTIMATED GFR > 60; GLUCOSE 155 mg/dL (70-104); POTASSIUM 3.8 mmol/L (3.5-5.1); SODIUM 134 mmol/L (136-145); TCO2 22 mmol/L (25-35)
[2018-11-06] MEDS: FLOVENT 220 MICROGM HFA INH SCH (07:35)
[2018-11-06] MEDS: NON-FORMULARY MED PO SCH ×2 (09:12→20:23)
[2018-11-06] MEDS: MORPHINE IR PO SCH ×2 (09:13→20:24)
[2018-11-06] MEDS: SINGULAIR PO SCH (09:13)
[2018-11-06] MEDS: ZYRTEC PO SCH (09:14)
[2018-11-06] MEDS: MS CONTIN PO SCH (09:15)
[2018-11-06] MEDS: TEGRETOL PO SCH ×2 (09:15→20:24)
[2018-11-06] MEDS: ZANAFLEX PO SCH ×2 (09:15→20:24)
[2018-11-06] MEDS: TRILEPTAL PO SCH ×2 (09:15→20:24)
[2018-11-06] MEDS: NEURONTIN PO SCH ×3 (09:16→18:09)
[2018-11-06] MEDS ORDERED: TYLENOL PO PRN (09:44)
--- NOTE | 2018-11-06 10:50 | PROGRESS NOTE ---
DATE: 11/06/2018 SUBJECTIVE: Patient reports feeling fine. More alert and awake. No shortness of breath. No fever anymore. OBJECTIVE: Vital Signs: Temperature 97.4 degrees, heart rate 64, respiratory rate 16, blood pressure 109/61, O2 saturation 98% on 2 L nasal cannula. General Examination: This is a 47-year- old, male lying in bed, in no acute distress. HEENT: Head is normocephalic and atraumatic. Neck: No JVD noted. No carotid bruits. No lymphadenopathy. No thyromegaly. Cardiovascular Examination: S1 and S2 heard. No murmurs, gallops, or rubs. Regular rate and rhythm. Respiratory Examination: Minimal coarse breath sounds noted in both pulmonary bases. Patient is not using any accessory muscles or having work of breathing. Abdomen: Soft. Nontender to palpation. Bowel sounds present. No organomegaly. Extremities: No clubbing, cyanosis, or edema. Peripheral pulses present in both legs. Neurological Examination: The patient is alert and oriented x3. Moves 4 extremities. Laboratory Data: CBC and BMP reviewed. ASSESSMENT/PLAN: 1. Severe sepsis secondary to bilateral pneumonia. Clinically, this patient is doing much better. White cell count is okay. The patient clinically is feeling okay. At this point, we will continue with the same antibiotic therapy; in this case, is vancomycin, aztreonam, and levofloxacin. We will continue with the same management. 2. Acute respiratory failure secondary to condition #1. Patient requiring oxygen at 2 L by nasal cannula. We will try to wean him off today. 3. Hypotension. Patient actually is hypertensive but considering this severe sepsis, we decided to stop hydrochlorothiazide and clonidine. We will see how this patient does. 4. Rhabdomyolysis that is nontraumatic. Actually, the CK is slightly elevated. We will continue with the same management. 5. Hyponatremia. The sodium is almost back to normal. We will continue to monitor BMP. 6. Disposition. At this point, I think we are going to transfer this patient to a regular room. I can anticipate if this patient continues to improve, he will be discharged within the next 24 to 48 hours. cc: Oswaldo Aquino MD
[2018-11-06] MEDS: ELAVIL PO SCH (20:24)
[2018-11-06 20:25] LABS: BILIRUBIN URINE NEGATIVE (NEGATIVE); BLOOD URINE NEGATIVE (NEGATIVE); KETONE URINE TRACE mg/dL (NEGATIVE); LEUKOCYTES URINE NEGATIVE (NEGATIVE); NITRITE URINE NEGATIVE (NEGATIVE); PROTEIN URINE TRACE mg/dL (NEGATIVE); SP GRAVITY URINE 1.015; UROBILINOGEN URINE NORMAL
[2018-11-06 20:26] LABS: CLARITY CLEAR (CLEAR); COLOR YELLOW
[2018-11-06 20:28] LABS: URINE BACTERIA NEGATIVE /HFP; URINE EPITHELIAL CELLS <10 /HPF (<10); URINE RBC <10 /HPF (<10); URINE SOURCE CLEAN CATCH; URINE WBC <10 /HPF (<10)
[2018-11-06] MEDS: LEVAQUIN 500 MG/D5W 500 MG/100 ML IVPB IV SCH (21:28)
[2018-11-07] MEDS: NS 1,000 ML IV SCH ×3 (02:22→08:00)
[2018-11-07] MEDS: AZACTAM 2 GM in NS 100 ML IV SCH ×3 (02:23→19:36)
[2018-11-07] MEDS: DUONEB (A & A) INH SCH ×6 (02:51→22:48)
[2018-11-07] MEDS: VANCOMYCIN 2,000 MG in NS 500 ML IV SCH ×2 (03:37→16:12)
[2018-11-07] MEDS: FLOVENT 220 MICROGM HFA INH SCH (07:46)
[2018-11-07 07:59] LABS: BASO# 0.02 X1000 (0.0-0.2); BASO% 0.5 % (0.0-0.8); EOS% 2.3 % (0.0-10.0); HEMATOCRIT 35.2 % (42.0-52.0); HEMOGLOBIN 11.8 g/dL (14.0-18.0); IMM GRAN# 0.09 X1000 (0.0-0.04); IMM GRAN% 2.1 % (0.0-0.5); LYMPH# 0.78 X1000 (1.2-3.4); LYMPH% 17.9 % (20.5-51.1); MCH 30.2 PG (27-31); MCHC 33.5 g/dL (33-37); MONO# 0.27 X1000 (0.11-0.59); MONO% 6.2 % (1.7-9.3); MPV 9.6 FL (7.4-10.4); PLT 142 X1000 (130-400); RBC 3.91 XMIL (4.7-6.1); RDW 12.9 % (11.5-14.5); WBC 4.36 X1000 (4.8-10.8)
[2018-11-07 08:16] LABS: AGAP 11; BUN 4 mg/dL (8-22); CALCIUM 7.8 mg/dL (8.8-10.2); CHLORIDE 97 mmol/L (98-107); COSMO 262; CREATININE 0.4 mg/dL (0.7-1.2); ESTIMATED GFR > 60; GLUCOSE 114 mg/dL (70-104); POTASSIUM 3.4 mmol/L (3.5-5.1); SODIUM 132 mmol/L (136-145); TCO2 25 mmol/L (25-35)
[2018-11-07] MEDS ORDERED: VITAMIN D PO SCH (09:00)
[2018-11-07] MEDS: TEGRETOL PO SCH ×2 (09:01→21:50)
[2018-11-07] MEDS: NON-FORMULARY MED PO SCH ×2 (09:01→21:52)
[2018-11-07] MEDS: NEURONTIN PO SCH ×3 (09:02→16:12)
[2018-11-07] MEDS: ZYRTEC PO SCH (09:02)
[2018-11-07] MEDS: TRILEPTAL PO SCH ×2 (09:02→21:50)
[2018-11-07] MEDS: ZANAFLEX PO SCH ×2 (09:02→21:51)
[2018-11-07] MEDS: SINGULAIR PO SCH (09:02)
[2018-11-07] MEDS ORDERED: LASIX IV ONE (10:21)
[2018-11-07] MEDS: MS CONTIN PO SCH (10:27)
[2018-11-07] MEDS: MORPHINE IR PO SCH ×2 (10:27→21:50)
--- NOTE | 2018-11-07 11:17 | Diag Imaging Result Doc PS360 ---
ABDOMEN FLAT/UPRIGHT - 11/07/2018 INDICATION: constipation COMPARISON: None FINDINGS: There are cholecystectomy clips. There is moderately severe diffuse constipation. No bowel obstruction or free air. IMPRESSION: Advanced constipation. Electronically signed by Stuart Vivas 11/07/2018 11:15 AM
--- NOTE | 2018-11-07 11:17 | Diag Imaging Result Doc PS360 ---
CHEST-2 VIEWS - 11/07/2018 INDICATION: sob COMPARISON: 11/04/2018 FINDINGS: Stable cardiomegaly and pulmonary vascular congestion. There is some mild interstitial pulmonary edema. There are trace bilateral pleural effusions. IMPRESSION: Cardiomegaly, interstitial pulmonary edema, trace bilateral pleural effusions. Electronically signed by Stuart Vivas 11/07/2018 11:14 AM
[2018-11-07] MEDS: MIRALAX PO SCH (12:13)
[2018-11-07] MEDS ORDERED: RELISTOR SUBQ ONE (12:19)
[2018-11-07] MEDS ORDERED: LINZESS PO ONE (12:20)
[2018-11-07] MEDS ORDERED: KLOR-CON PO ONE (12:22)
--- NOTE | 2018-11-07 13:44 | PROGRESS NOTE ---
DATE: 11/07/2018 SUBJECTIVE: The patient reports feeling some chest congestion and feeling more short of breath. We are trying to wean off oxygen but he was not able to. He is requiring 2 L of oxygen by nasal cannula. He reports being constipated. OBJECTIVE: Vital Signs: Temperature 98.4, heart rate 77, respiratory rate 18, blood pressure 126/92, O2 saturation 94% on 2 L nasal cannula. General Examination: This is a 47-year-old, male lying in bed, in no acute distress. Cardiovascular Exam: S1 and S2 heard. No murmurs, gallops, or rubs. Regular rate and rhythm. Respiratory Examination: Minimal coarse breath sounds and crackles noted in both lung bases. Patient is not using any accessory muscles or having work of breathing. Abdomen: Soft, nontender to palpation, distended. No organomegaly noted. Extremities: No clubbing or cyanosis. Mild edema on both lower extremities. Peripheral pulses present in both legs. Neurological Examination: The patient is alert and oriented x3. Moves 4 extremities. LABORATORY DATA: Laboratory data was reviewed with potassium 3.4 and also the x-ray showed cardiomegaly with interstitial pulmonary edema and trace bilateral pleural effusion, and the abdomen x-ray showed advanced constipation. ASSESSMENT AND PLAN: 1. Severe sepsis secondary to bilateral pneumonia. Clinically, the patient is doing fine from that condition. Will continue with vancomycin and aztreonam. Will Continue with same management. 2. Acute hypoxemic respiratory failure most likely related to the pulmonary edema. The patient has currently received 1 dose of Lasix 80 mg a day and also at night 40 mg a night and also tomorrow morning 40 mg each. 3. Hypotension. Blood pressure is now better. 4. Rhabdomyolysis, condition is not traumatic. The CK is mildly elevated only. Will continue with same management. 5. Hyponatremia. Sodium is almost back to normal. Will continue to monitor. 6. Disposition: At this point, the patient is going to stay 1 more day to see if pulmonary edema resolves with the Lasix. If that is the case, the patient will be discharged tomorrow. cc: Oswaldo Aquino MD MTDJann
[2018-11-07] MEDS: LASIX IV SCH (21:50)
[2018-11-07] MEDS: LEVAQUIN 500 MG/D5W 500 MG/100 ML IVPB IV SCH (21:50)
[2018-11-07] MEDS: ELAVIL PO SCH (21:51)
[2018-11-08] MEDS: AZACTAM 2 GM in NS 100 ML IV SCH ×2 (02:52→11:18)
[2018-11-08] MEDS: DUONEB (A & A) INH SCH ×4 (03:17→16:25)
[2018-11-08] MEDS: VANCOMYCIN 2,000 MG in NS 500 ML IV SCH (04:00)
[2018-11-08] MEDS: FLOVENT 220 MICROGM HFA INH SCH (07:30)
[2018-11-08 08:29] LABS: HEMATOCRIT 38.2 % (42.0-52.0); RBC 4.21 XMIL (4.7-6.1); WBC 7.95 X1000 (4.8-10.8)
[2018-11-08 08:30] LABS: AGAP 13; BASO# 0.02 X1000 (0.0-0.2); BASO% 0.3 % (0.0-0.8); CHLORIDE 100 mmol/L (98-107); EOS# 0.06 X1000 (0.0-0.7); EOS% 0.8 % (0.0-10.0); IMM GRAN# 0.07 X1000 (0.0-0.04); IMM GRAN% 0.9 % (0.0-0.5); LYMPH% 7.5 % (20.5-51.1); MCH 30.9 PG (27-31); MCV 90.7 FL (81-99); MONO# 0.36 X1000 (0.11-0.59); MONO% 4.5 % (1.7-9.3); MPV 9.8 FL (7.4-10.4); NEUT# 6.84 X1000 (1.4-6.5); PLT 159 X1000 (130-400); POTASSIUM 3.2 mmol/L (3.5-5.1); RDW 13.4 % (11.5-14.5); SODIUM 142 mmol/L (136-145); TCO2 29 mmol/L (25-35)
[2018-11-08 08:31] LABS: BUN 3 mg/dL (8-22); CALCIUM 8.2 mg/dL (8.8-10.2); COSMO 282; CREATININE 0.6 mg/dL (0.7-1.2); ESTIMATED GFR > 60; GLUCOSE 139 mg/dL (70-104)
[2018-11-08 08:51] LABS: EOS 3 % (1-10); LYMPHS 11 % (21-51); MONO 5 % (1-9); SEGS 81 % (42-75)
[2018-11-08] MEDS ORDERED: KLOR-CON PO ONE (09:03)
[2018-11-08] MEDS: LASIX IV SCH (10:54)
[2018-11-08] MEDS: MIRALAX PO SCH (10:58)
[2018-11-08] MEDS: TRILEPTAL PO SCH (10:58)
[2018-11-08] MEDS: MS CONTIN PO SCH (10:58)
[2018-11-08] MEDS: ZYRTEC PO SCH (10:59)
[2018-11-08] MEDS: SINGULAIR PO SCH (10:59)
[2018-11-08] MEDS: ZANAFLEX PO SCH (11:00)
[2018-11-08] MEDS: NEURONTIN PO SCH (11:00)
[2018-11-08] MEDS: MORPHINE IR PO SCH (11:00)
[2018-11-08] MEDS: TEGRETOL PO SCH (11:00)
[2018-11-08] MEDS: NON-FORMULARY MED PO SCH (11:01)
[2018-11-08] MEDS ORDERED: GOLYTELY PO ONE (11:03)
[2018-11-08] MEDS ORDERED: LASIX IV ONE (11:04)
[2018-11-08 12:10] VITALS: BP 133/70
--- NOTE | 2018-11-08 20:34 | DISCHARGE SUMMARY ---
ADMISSION DATE: 11/04/2018 DISCHARGE DATE: 11/08/2018 PRIMARY CARE PHYSICIAN: Dr. Kent. ADMISSION DIAGNOSIS: 1. Sepsis. 2. Bilateral pneumonia. 3. Acute respiratory failure. 4. Hypotension. 5. Rhabdomyolysis. 6. Hyponatremia. DISCHARGE DIAGNOSIS: 1. Sepsis resolved. 2. Bilateral pneumonia. 3. An acute hypoxemic respiratory failure secondary to pulmonary edema, resolved. 4. Hypotension resolved. 5. Rhabdomyolysis resolved. 6. Hyponatremia resolved. SUMMARY OF FINDINGS: This is a 47-year-old male who presented to the emergency room after he had gone to his primary care physician's office for evaluation but could not get out of the car and so they sent him to the emergency room for evaluation. He was found to have a temperature of 105.1 degrees, a pulse of 134, blood pressure of 48/28, was saturating 89% on room air. White blood cell count was normal at 8.44. Sodium was 130, creatine kinase 643 with a CK-MB of 14.41, plasma lactate of 4.1. Chest x-ray showed mild ill-defined infiltrates at the mid and lower lung zones bilaterally so he was admitted to the intensive care unit initially with sepsis, placed on IV antibiotics, IV Tylenol q.6 routinely, vancomycin per pharmacy protocol. He was hydrated, placed on O2. He responded well to his treatment. His sodium level returned to normal at 142. His rhabdomyolysis resolved with hydration. He is currently saturating 94 to 98% on room air. We did a repeat chest x-ray on 11/07/2018 that showed cardiomegaly, interstitial pulmonary edema and trace bilateral pleural effusions. We did an abdomen x-ray also that showed advanced constipation. We did a chest CT on 11/05/2018 that showed his bilateral pneumonia with right greater than left but it is now felt that he can safely be discharged home today. DISCHARGE MEDICATIONS: Vitamin D2 50,000 units as directed, Flovent inhaler daily, morphine IR 30 mg p.o. b.i.d., amitriptyline 150 mg p.o. at bedtime, carbamazepine 200 mg p.o. b.i.d., Lasix 20 mg p.o. daily for 7 days #7 with no refills, gabapentin 800 mg p.o. t.i.d., hydrochlorothiazide 25 mg p.o. daily, levocetirizine 5 mg p.o. daily, Levaquin 750 mg p.o. daily #10 with no refills, Glucophage 500 mg p.o. 4 times daily, Singulair 10 mg p.o. daily, morphine ER 30 mg p.o. daily, Phenergan 25 mg p.o. as directed p.r.n. and Zanaflex 4 mg p.o. b.i.d. FOLLOWUP: He needs to follow up with his primary care physician in the next week and call the office for an appointment. All discharge instructions have been reviewed with the patient and he verbalized understanding. TIME SPENT: 35 minutes. Dictated by MARIYA Kay for Oswaldo Aquino MD Addendum: Patient seen and examined by myself. Agree with MARIYA note. It reflects my assessment and plan. Patient is being discharged in stable condition. Will be seen by his primary care doctor in a week. cc: MD Oswaldo Arteaga MD MTD
== END 2018-11-08 16:05 | disposition home or self-care (01) | DRG 871 ==
LOC: P.ED 16:46 → P.ICU 23:54 → P.MEDSURG 11-06 12:46
PROVIDERS: ATTEND Internal Medicine
CPT/HCPCS: 70450; 71010; 71020; 71045; 71046; 71260; 74019; 74020; 80048; 80053; 80202; 81001; 82550; 82553; 82805; 83605; 84484; 85025; 85610; 85730; 87040; 87077; 87088; 87275; 87276; 87804; 93005; 94640; 94761; 96361; 96365; 96366; 96367; 99285; 99291; A9270; J0131; J1940; J1956; J2270; J3370; J7030; J7040; Q9967; S0073